=== PATIENT | female | born 1985 | race Caucasian/White ===

== ENCOUNTER 2017-02-13 18:51 | Outpatient (CLI) | payer BC ==
[~2017-02-13] VITALS: Ht 165.1 cm; Wt 67.6 kg
[2017-02-13] MEDS ORDERED: PRENAT PO (19:39)
[2017-02-13 19:41] VITALS: Ht 165.1 cm; Wt 67.6 kg
[2017-02-13] MEDS ORDERED: URSO300C3 PO (19:41)
[2017-02-13 19:42] VITALS: BP 119/73; PULSE 66; RESP 18
--- NOTE | 2017-02-13 20:35 | RADRPT ---
PROCEDURE: US OB. CLINICAL INDICATION: labor. Bleeding TECHNIQUE: Pelvic ultrasound performed for biophysical profile. COMPARISON: None FINDINGS: Single intrauterine gestation present with heart rate at 146 beats per minute. Presentation is ceph alic. Placenta is posterior, grade II. No evidence of placenta previa or abruption. Biophysical pro file score is 8/8 (breathing=2, movement=2, tone =2, fluid volume=2). Amniotic fluid volume is withi n normal limits, with FLORESITA = 14.2 cm. RPTAT:HJJR IMPRESSION: 1. Biophysical profile score 8/8. 2. Posterior grade 2 placenta without placenta previa or abruption. Physician Ishmael Date Time Electronically viewed and signed by Physician Ishmael on 02/13/2017 20:35 /
--- NOTE | 2017-02-13 22:04 | PN ---
Triage Information Date/Time 02/13/17 10pm Weeks of Gestation 31 yo P0 @ 35wks, 3 days, presents with vaginal spotting and abdominal cramps. She is on Ursinodol for persistent itching and bile acids drawn in clinic are pending. Patient feels baby moving actively. : 1 Para: 0 Diabetes: none Objective Vital Signs Date Time Temp Pulse Resp B/P Pulse Ox O2 Delivery O2 Flow Rate FiO2 02/13/17 19:42 97.9 66 18 119/73 Exam SVE: /-3 FHT: basline 140's; Cat I, patient has been monitored for 3 hrs, w 2 possible late decels noted during that time; otherwise no decelerations and accelerations present. 2nd late decel was 1 hour ago. Vowinckel- irreg ctx BPP 8/8, vtx, nml FLORESITA Results/Medications Imaging Results BPP 8/8, post placenta Assessment/Plan 31 yo P0 @ [id number] w bleeding, likely secondary to contractions, r/o PTL, w possible cholestasis of - reassuring status, BPP 8/8 - not currently itching, ctx have subsided, not actively bleeding - not in PTL will d/c home in 1 hr if no further decels, on the condition that patient will return in the morning for repeat NST. Strict kick count precautions. HENRY FROST MD Feb 13, 2017 22:04
--- NOTE | 2017-02-13 23:28 | TRIAGE ---
OB Triage Datetime Report Generated by CPN: 02/13/2017 23:28 Datetime: 02/13/2017 22:59 Labor Evaluation Frequency: 1.5-7 Monitor Mode: External Duration (sec)2399: 50-180 Quality: Mild Resting Tone Norborne: Relaxed Heart Rate FHR Baseline Rate: 135 Monitor Mode: External US FHR Baseline Changes: No Baseline Change Variability: Moderate 6-25 bpm Accelerations: 15X15 Decelerations: None Category: Category I Datetime: 02/13/2017 22:00 Labor Evaluation Frequency: 2-7 Monitor Mode: External Duration (sec)2399: 60-180 Quality: Mild Resting Tone [place]borne: Relaxed Heart Rate FHR Baseline Rate: 135 Monitor Mode: External US FHR Baseline Changes: No Baseline Change Variability: Moderate 6-25 bpm Accelerations: 15X15 Decelerations: None Category: Category I Datetime: 02/13/2017 21:52 Stage of : OB Triage Datetime: 02/13/2017 21:00 Labor Evaluation Frequency: 2-8 Monitor Mode: External Duration (sec)2399: 60-180 Quality: Mild Resting Tone Norborne: Relaxed Heart Rate FHR Baseline Rate: 140 Monitor Mode: External US FHR Baseline Changes: No Baseline Change Variability: Moderate 6-25 bpm Accelerations: 15X15 Decelerations: Late Category: Category II Datetime: 02/13/2017 20:35 Vaginal Exam Dilatation (cms): 1.0 Effacement (%): 50 Station: -3 Exam By: [facility] Cervix, Position: Posterior Presentation 'A': Cephalic Datetime: 02/13/2017 20:00 Labor Evaluation Frequency: 1-8 Monitor Mode: External Duration (sec)2399: 50-180 Quality: Mild Resting Tone Norborne: Relaxed Heart Rate FHR Baseline Rate: 140 Monitor Mode: External US FHR Baseline Changes: No Baseline Change Variability: Moderate 6-25 bpm Accelerations: 15X15 Decelerations: Late Category: Category II Datetime: 02/13/2017 19:53 Stage of : OB Triage Datetime: 02/13/2017 19:35 Stage of : OB Triage Assessment Type: Triage Maternal Assessment Level of Consciousness: Fully Conscious DTR's/Clonus: DTRs 2+; No Clonus Headache: Denies Blurred Vision: No Respiratory Effort: Unlabored; Regular Rhythm; Equal Expansion Breath Sounds, Left: Clear and Equal Breath Sounds, Right: Clear and Equal Nausea/Vomiting: Denies RUQ Epigastric Pain: Denies Lower Extremities Edema: None Degree: None Upper Extremities Edema: None Degree: None Facial Edema: None Fall Risk Assessment History of Falling: (0) No Secondary Diagnosis: (0) No Ambulatory Aid: (0) Bedrest/Nurse Assist IV Therapy: (0) No Gait: (0) Normal/Bedrest/Immobile Mental Status: (0) Oriented to Own Ability Fall Score: 0 Fall Risk Score Definition: No Risk: No action required Datetime: 02/13/2017 19:16 EGA: 35.3 Datetime: 02/13/2017 19:02 Stage of : OB Triage Temperature Route: Oral Pain Assessment Pain Scale: 1 Pain Presence: Intermittent Pain Type: Cramping Pain Location: Abdomen Pain Relief Measures: Comfort Measures Datetime: 02/13/2017 19:01 Monitor Mode: External Contraction Comments: Norborne applied Heart Rate FHR Baseline Rate: 140 Monitor Mode: External US Comments: EFM applied Datetime: 02/13/2017 19:00 Time of Arrival: 02/13/2017 18:44 Arrived From: Home Chief Complaint: VAG SPOTTING, ABDOMINAL CRAMPING Movement: Present Contractions: Occasional Contractions: 5-8 Rupture of Membranes: Denies Vaginal Bleeding: Scant Vaginal Discharge: Denies Recent Sexual Intercouse: Denies Abdominal Trauma: Not Applicable Patient Complaints: Cramping Time Provider Notified: 02/13/2017 19:50 Provider Notified: FROST Initial Plan: VS, EFM, BPP WITH PLACENTA LOCATION, VE
== END 2017-02-13 23:08 | disposition home or self-care (01) ==
LOC: OBT 18:51 → L-D 18:52 → OBT 23:08
PROVIDERS: ATTEND Specialist
DX: O26.853 Spotting complicating pregnancy, third trimester (principal); O26.893 Other specified pregnancy related conditions, third trimester; R10.9 Unspecified abdominal pain; Z3A.30 30 weeks gestation of pregnancy
CPT/HCPCS: 76818; 86900; 86901; Z7500; G0463

== ENCOUNTER 2017-02-14 07:55 | Inpatient (IN) | payer BC ==
[~2017-02-14] VITALS: Ht 165.1 cm; Wt 67.6 kg
[~2017-02-14 07:55] MED LIST: PRENAT PO; URSO300C3 PO
[2017-02-14 08:08] VITALS: Ht 165.1 cm; Wt 67.6 kg
[2017-02-14 08:09] VITALS: BP 124/72; PULSE 56; RESP 18
--- NOTE | 2017-02-14 09:17 | RADRPT ---
PROCEDURE: US OB biophysical profile. CLINICAL INDICATION: Contractions TECHNIQUE: Multiple sonographic images of the pelvis were obtained. The images were reviewed on a PACS workstation. COMPARISON: Obstetrical ultrasound from 02/13/2017 FINDINGS: There is a single viable intrauterine gestation. Cardiac activity is present with 139 beats per min [place]. There is a vertex presentation. The placenta is posterior. There is no evidence of placental abruption. There is a normal amount of amniotic fluid with an FLORESITA = 9.9 cm. Biophysical profile: movement 2/2 tone 2/2. breathing 2/2 FLORESITA 2/2 Total 04/14 RPTAT: AA . IMPRESSION: Normal biophysical profile. Physician Danyelle Date Time Electronically viewed and signed by Physician Danyelle on 02/14/2017 09:16 /
[2017-02-14] MEDS ORDERED: LACTATED RINGER'S 500 ML IV* ONE (09:40)
[2017-02-14] MEDS ORDERED: LACTATED RINGER'S 1,000 ML IV* SCH (10:30)
[2017-02-14 10:42] LABS: ADD UMIC YES; URINE BILIRUBIN (Dip) NEGATIVE (NEGATIVE); URINE BLOOD (Dip) 2+ (NEGATIVE); URINE COLOR YELLOW (YELLOW); URINE GLUCOSE (Dip) NEGATIVE (NEGATIVE); URINE KETONES (Dip) NEGATIVE (NEGATIVE); URINE LEUKOCYTE ESTERASE (Dip) NEGATIVE (NEGATIVE); URINE NITRITE (Dip) NEGATIVE (NEGATIVE); URINE TOTAL PROTEIN (Dip) TRACE (NEGATIVE); URINE UROBILINOGEN (Dip) 1.0 E.U./dL (0.1-1.0)
[2017-02-14 11:21] LABS: SQUAMOUS EPITHELIAL CELL,UR FEW; URINE RBCS 0-2 /HPF (0)
[2017-02-14 11:22] LABS: BACTERIA,URINE OCCASIONAL
[2017-02-14] MEDS ORDERED: TERBUTALINE 1 MG/ML INJ SC PRN (14:00)
[2017-02-14] MEDS ORDERED: BETAMET NA PHOS/AC(6 MG/ML) 5ML INJ IM SCH (14:00)
--- NOTE | 2017-02-14 14:36 | HP ---
Date/Time of Note Date/Time of Note DATE: 02/14/17 TIME: 14:27 OB - History Hx of Present Free Text/Dictation Patient is 1 para 0 at 35+4 weeks of gestation who presents with vaginal bleeding and contractions every 6-8 minutes Patient reports positive movement, no leaking fluid : 1 Para: 0 Care: Good Care Obstetrical Complications: None Medical Complications: None Past Family/Social History * Past Medical, Surgical, Family and Obstetric Histories reviewed from chart. OB Admission Exam Vital Signs Vital Signs Vital Signs Date Time Temp Pulse Resp B/P Pulse Ox O2 Delivery O2 Flow Rate FiO2 02/14/17 08:09 98.3 56 18 124/72 96 Room Air Physical Exam HEENT: WNL Heart: Rhythm Normal Lungs: Clear, Equal Abdomen: WNL Extremities: Normal Reflexes: Normal Cervical Dilatation: 1cm Effacement: 50% Station: -2 Membranes: Intact Heart Rate: 140's Accelerations: Accelerations Present Decelerations: No Decelerations Varibility: Moderate Contractions on Admission: 6-10 Minutes Apart OB Assessment/Plan Reason for admission: labor Other Assessment: 35+4 weeks of gestation with contractions and vaginal bleeding Other plan: Admit to antepartum IV fluids Labs Terbutaline as needed Betamethasone for lung maturity Continue with Actigall-bile acid results are pending We will obtain perinatology consult IRVIN CIFUENTES MD Feb 14, 2017 14:36
[2017-02-14] MEDS ORDERED: LACTATED RINGER'S 1,000 ML IV SCH (14:45)
[2017-02-14 14:50] LABS: ADD SCAN DIFF NO
[2017-02-14 14:52] LABS: ABNORMAL IP MESSAGE 1; BASOPHILS % 0.1 % (0.0-2.0); EOSINOPHILS % 0.2 % (0.0-7.0); HEMOGLOBIN 11.5 g/dl (12.0-16.0); LYMPHOCYTES % 9.1 % (15.0-51.0); MEAN CORPUSCULAR HGB CONC 35.9 g/dl (32.0-37.0); MEAN PLATELET VOLUME 13.8 fl (7.4-10.4); MONOCYTE # 0.4 10^3/ul (0.3-0.9); NEUTROPHILS % 85.9 % (39.0-77.0); PLATELET COUNT 59 10^3/UL (140-415); RED BLOOD COUNT 3.48 10^6/ul (4.20-5.40); RED CELL DISTRIBUTION WIDTH 12.7 % (11.5-14.5); WHITE BLOOD COUNT 10.5 10^3/ul (4.8-10.8)
[2017-02-14] MEDS ORDERED: DIPHENHYDRAMINE 25 MG CAP PO PRN (15:00)
[2017-02-14] MEDS ORDERED: AL HYDROX/MG HYDROX/SIMETH 30 ML CUP PO PRN (15:00)
[2017-02-14] MEDS ORDERED: ONDANSETRON 4 MG INJ IV PRN (15:00)
[2017-02-14] MEDS ORDERED: ACETAMINOPHEN 325 MG TAB PO PRN (15:00)
[2017-02-14] MEDS ORDERED: MAGNESIUM SULFATE 4 GM/100 ML 100 ML IV ONE (15:00)
[2017-02-14] MEDS ORDERED: AMPICILLIN 2 GM/NS (PMX) 100 ML IV ONE (15:00)
[2017-02-14 15:11] LABS: INR 0.81; PROTIME 11.2 Sec (12.2-14.2); PT RATIO 0.9
[2017-02-14 15:12] LABS: PARTIAL THROMBOPLASTIN TIME 44.5 Sec (25.0-35.0)
[2017-02-14 15:14] LABS: ALBUMIN 3.8 g/dl (3.3-4.9); ALBUMIN/GLOBULIN RATIO 1.22; BILIRUBIN,INDIRECT 0.4 mg/dl (0-1.1); BILIRUBIN,TOTAL 0.4 mg/dl (0.2-1.3); CALCIUM 8.8 mg/dl (8.4-10.2); CREATININE 0.77 mg/dl (0.44-1.00); POTASSIUM 3.8 mmol/L (3.5-5.1); TOTAL PROTEIN 6.9 g/dl (6.1-8.1)
[2017-02-14] MEDS ORDERED: MAGNESIUM SULFATE 20 GM/500 ML 500 ML IV SCH (15:30)
[2017-02-14] MEDS ORDERED: OXYTOCIN 30 UNITS/LR 500 ML IV PRN (18:30)
[2017-02-14] MEDS ORDERED: CARBOPROST 250 MCG INJ IM PRN (18:30)
[2017-02-14] MEDS ORDERED: MISOPROSTOL 200 MCG TAB PR PRN (18:30)
[2017-02-14] MEDS ORDERED: LACTATED RINGER'S 1,000 ML IV PRN (18:30)
[2017-02-14] MEDS ORDERED: LIDOCAINE 1% (MPF) 30 ML INJ INJ PRN (18:30)
[2017-02-14] MEDS ORDERED: OXYTOCIN 30 UNITS/LR 500 ML IV SCH ×3 (18:30→20:30)
[2017-02-14] MEDS ORDERED: IBUPROFEN 600 MG TAB PO PRN (18:30)
[2017-02-14] MEDS ORDERED: METHYLERGONOVINE 0.2 MG INJ IM PRN (18:30)
[2017-02-14] MEDS: LACTATED RINGER'S 1,000 ML IV SCH ×2 (18:41→21:07)
[2017-02-14] MEDS ORDERED: AMPICILLIN 1 GM/NS (PMX) 50 ML IV SCH (19:00)
[2017-02-14] MEDS ORDERED: AMPICILLIN 1 GM/NS (PMX) 50 ML IVPB SCH ×2 (19:00→21:00)
[2017-02-14 19:34] LABS: ADD SCAN DIFF NO
[2017-02-14 19:48] LABS: ABNORMAL IP MESSAGE 1; HEMATOCRIT 33.7 % (37.0-47.0); MEAN CORPUSCULAR HEMOGLOBIN 32.2 pg (29.0-33.0); MEAN CORPUSCULAR HGB CONC 35.6 g/dl (32.0-37.0); MEAN CORPUSCULAR VOLUME 90.3 fl (82.0-101.0); MEAN PLATELET VOLUME 13.5 fl (7.4-10.4); PLATELET COUNT 66 10^3/UL (140-415); RED BLOOD COUNT 3.73 10^6/ul (4.20-5.40); RED CELL DISTRIBUTION WIDTH 12.5 % (11.5-14.5); WHITE BLOOD COUNT 15.5 10^3/ul (4.8-10.8)
[2017-02-14 19:52] LABS: ALBUMIN/GLOBULIN RATIO 1.21; BILIRUBIN,INDIRECT 0.4 mg/dl (0-1.1); BILIRUBIN,TOTAL 0.4 mg/dl (0.2-1.3); CALCIUM 8.4 mg/dl (8.4-10.2); CREATININE 0.7 mg/dl (0.44-1.00); POTASSIUM 3.9 mmol/L (3.5-5.1); TOTAL PROTEIN 7.3 g/dl (6.1-8.1)
--- NOTE | 2017-02-14 20:25 | PN ---
Date/Time of Note Date/Time of Note DATE: 02/14/17 TIME: 20:20 OB Subjective Subjective Subjective Patient is 1 para 0 at 35+4 weeks of gestation who presents with vaginal bleeding and contractions every 6-8 minutes Patient reports positive movement, no leaking fluid OB Objective Objective Objective Patient status post magnesium sulfate Status post 1 dose of betamethasone for lung maturity Patient still complaining of vaginal bleeding and contractions are every 5 minutes Labs indicating with decreased platelets of 50s-60s and elevated liver function tests Patient has been diagnosed with cholestasis of and currently on Actigall HEENT: WNL Heart: Rhythm Normal Lungs: Clear, Equal Abdomen: WNL Extremities: Normal Reflexes: Normal Cervical Dilatation: 2cm Effacement: 50% Station: -2 Membranes: Intact Heart Rate: 140's Accelerations: Accelerations Present Decelerations: No Decelerations Varibility: Moderate Contractions on Admission: 6-10 Minutes Apart Intensity: Mild OB Assessment/Plan Other Assessment: Patient is 1 para 0 at 35+4 weeks of gestation who presents with vaginal bleeding and contractions Patient with suspected cholestasis of and now developing HELLP syndrome Other plan: Patient was transferred to labor and delivery Magnesium sulfate was stopped Repeat labs indicating worsening of liver function tests and low platelets Perinatologist Dr. Pickett was consulted regarding this patient and she agrees to allow the patient to proceed with labor Patient was counseled that despite her status in the setting of cholestasis of and HELLP syndrome delivery is recommended Patient's questions were answered and she understands her plan of care and agrees to proceed IRVIN CIFUENTES MD Feb 14, 2017 20:25
[2017-02-14 20:34] LABS: BASOPHIL # 0.2 10^3/ul (0.0-0.1); LYMPHOCYTES # 0.8 10^3/ul (0.8-2.9); MONOCYTE # 0.2 10^3/ul (0.3-0.9); MYELOCYTES # 0.2; NEUTROPHIL # 13.5 10^3/ul (1.6-7.5); PLATELET ESTIMATE PLT APPEAR DECREASED
[2017-02-14] MEDS ORDERED: URSODIOL 300 MG CAP PO SCH (21:00)
[2017-02-14] MEDS: AMPICILLIN 1 GM/NS (PMX) 50 ML IV SCH (21:07)
--- NOTE | 2017-02-14 22:45 | RADRPT ---
PROCEDURE: ULTRASOUND OBSTETRICAL CLINICAL INDICATION: 31-year-old female in labor for size and date determination. TECHNIQUE: Multiple sonographic images of the pelvis were obtained. The images were reviewed on a PACS workstation. COMPARISON: Ultrasound biophysical profile obtained concurrently. FINDINGS: The cervix is not well visualized. There is a single viable intrauterine gestation. Cardiac activit y is present with 146 beats per minute. There is a low vertex presentation. Measurements were made i n order to determine age. The results are as follows: BPD = 8.26 cm, HC = 30.03 cm, AC = 31.16 cm, FL = 6.72 cm. This yields and estimated gestational ag e of approximately 34 weeks 1 day. The estimated date of delivery is March 27, 2017. The EFW = 2461 +/- 369 g (5 lb 7 oz). The GP is 23%. The placenta is fundal and left lateral. There is no evidence for an abruption or placenta previa. IMPRESSION: 1. Single viable intrauterine gestation of approximately 34 weeks 1 day with low vertex presentatio n. The estimated date of delivery is March 27, 2017. 2. The estimated weight is 2461 +/- 369 g (5 lb 7 oz). The GP is 23%. 3. The cervical length was not well visualized. .Christopher Chaudhry MD, Date Time Electronically viewed and signed by .Christopher Chaudhry MD, on 02/14/2017 22:45 .M/
[2017-02-14 23:44] LABS: BARBITURATES NEGATIVE (NEGATIVE); BENZODIAZEPINES NEGATIVE (NEGATIVE); CANNABINOIDS NEGATIVE (NEGATIVE); COCAINE NEGATIVE (NEGATIVE); OPIATES NEGATIVE (NEGATIVE)
[2017-02-15] MEDS ORDERED: BUTORPHANOL 2 MG INJ IV PRN ×2
[2017-02-15] MEDS: AMPICILLIN 1 GM/NS (PMX) 50 ML IV SCH (01:27)
--- NOTE | 2017-02-15 01:29 | LDN ---
Date/Time of Note Date/Time of Note DATE: 02/15/17 TIME: 01:26 Delivery Summary 35+ weeks of gestation with cholestasis of and HELLP syndrome Weeks of Gestation Baby's weight 2230 g/4 lbs. 15 oz. Placenta Delivered: Spontaneously Meconium: none Episiotomy: No Laceration repair: First-degree laceration repaired with 2-0 chromic Anesthesia type: Local Estimated blood loss: 200 Sponge & Needle done & correct: Yes All needle counts correct: Yes Any foreign bodies felt in the: No Problems: Infant Delivery Information Sex Infant Sex: female Apgars 1 Minute: 8 5 Minute: 9 Suctioning Nose & mouth suctioned at jade: Yes Umbilical Cord Umbilical cord with: 3 Vessels Cord presentations: no nuchal cord Cord Blood was obtained: Yes Copies To: CC: ALTA ROSALES MD, BAHAREH MD Feb 15, 2017 01:29
[2017-02-15] MEDS: LACTATED RINGER'S 1,000 ML IV* SCH ×3 (01:30→17:30)
[2017-02-15] MEDS ORDERED: SENNA/DOCUSATE NA (8.6MG/50MG) TAB PO PRN (01:30)
[2017-02-15] MEDS ORDERED: MAGNESIUM HYDROXIDE 30ML CUP PO PRN (01:30)
[2017-02-15] MEDS ORDERED: OXYTOCIN 30 UNITS/LR 500 ML IV PRN (01:30)
[2017-02-15] MEDS ORDERED: MISOPROSTOL 200 MCG TAB PR PRN (01:30)
[2017-02-15] MEDS: OXYTOCIN 30 UNITS/LR 500 ML IV SCH ×2 (01:30→05:30)
[2017-02-15] MEDS ORDERED: METHYLERGONOVINE 0.2 MG INJ IM PRN (01:30)
[2017-02-15] MEDS ORDERED: ACETAMINOPHEN 325 MG TAB PO PRN ×2 (01:30)
[2017-02-15] MEDS ORDERED: CARBOPROST 250 MCG INJ IM PRN (01:30)
[2017-02-15] MEDS ORDERED: DIBUCAINE 1% 30 GM OINT PR PRN (01:30)
[2017-02-15] MEDS ORDERED: BENZOCAINE 20% 56 ML SPRAY TOP PRN (01:30)
[2017-02-15] MEDS ORDERED: LANOLIN 7 GM TUBE TOP PRN (01:30)
[2017-02-15] MEDS ORDERED: ONDANSETRON 4 MG INJ IV PRN (01:30)
[2017-02-15] MEDS ORDERED: WITCH HAZEL/GLYCERIN PAD PR PRN (01:30)
[2017-02-15 03:17] VITALS: BP 127/76; PULSE 67; RESP 17
[2017-02-15 04:50] VITALS: BP 120/76; PULSE 67; RESP 20
[2017-02-15 07:30] VITALS: BP 126/75; PULSE 75; RESP 19
[2017-02-15] MEDS: MULTIVIT/MIN/FOLATE/IRON/PREN TAB PO SCH (10:01)
[2017-02-15 15:50] LABS: RAPID PLASMA REAGIN REACTIVE (NR)
[2017-02-15 16:00] VITALS: BP 126/72; PULSE 72; RESP 19
[2017-02-15] MEDS: IBUPROFEN 600 MG TAB PO PRN (17:53)
[2017-02-15 19:35] VITALS: BP 121/66; PULSE 76; RESP 18
[2017-02-16] MEDS: LACTATED RINGER'S 1,000 ML IV* SCH (01:30)
[2017-02-16 03:30] VITALS: BP 121/79; PULSE 74; RESP 20
[2017-02-16 06:38] LABS: ADD SCAN DIFF NO
[2017-02-16 06:54] LABS: ABNORMAL IP MESSAGE 1; BASOPHILS % 0.2 % (0.0-2.0); EOSINOPHILS # 0.1 10^3/ul (0.0-0.5); EOSINOPHILS % 0.5 % (0.0-7.0); HEMATOCRIT 29.4 % (37.0-47.0); HEMOGLOBIN 9.8 g/dl (12.0-16.0); LYMPHOCYTES # 1.4 10^3/ul (0.8-2.9); LYMPHOCYTES % 11.1 % (15.0-51.0); MEAN CORPUSCULAR HEMOGLOBIN 31.7 pg (29.0-33.0); MEAN CORPUSCULAR HGB CONC 33.3 g/dl (32.0-37.0); MEAN CORPUSCULAR VOLUME 95.1 fl (82.0-101.0); MEAN PLATELET VOLUME 12.9 fl (7.4-10.4); MONOCYTE # 0.7 10^3/ul (0.3-0.9); MONOCYTES % 5.6 % (0.0-11.0); NEUTROPHIL # 10.6 10^3/ul (1.6-7.5); NEUTROPHILS % 81.7 % (39.0-77.0); RED BLOOD COUNT 3.09 10^6/ul (4.20-5.40); RED CELL DISTRIBUTION WIDTH 13.2 % (11.5-14.5); WHITE BLOOD COUNT 12.9 10^3/ul (4.8-10.8)
[2017-02-16 06:58] LABS: PLATELET COUNT 51 10^3/UL (140-415)
[2017-02-16 07:08] LABS: ALBUMIN 3.3 g/dl (3.3-4.9); ALBUMIN/GLOBULIN RATIO 1.1; BILIRUBIN,INDIRECT 0.1 mg/dl (0-1.1); BILIRUBIN,TOTAL 0.1 mg/dl (0.2-1.3); CREATININE 0.65 mg/dl (0.44-1.00); POTASSIUM 3.8 mmol/L (3.5-5.1); TOTAL PROTEIN 6.3 g/dl (6.1-8.1)
--- NOTE | 2017-02-16 07:54 | PN ---
Date/Time of Note Date/Time of Note DATE: 02/16/17 TIME: 07:53 OB Subjective Subjective Subjective Doing well,nursing without problems. OB Objective Objective Objective BPs are normal,platelets still low Lochia normal. HEENT: WNL Heart: Rhythm Normal Lungs: Clear Abdomen: WNL Extremities: Normal ALTA ROSALES MD Feb 16, 2017 07:54
[2017-02-16 08:10] VITALS: BP 119/75; PULSE 74; RESP 18
[2017-02-16] MEDS: MULTIVIT/MIN/FOLATE/IRON/PREN TAB PO SCH (09:10)
[2017-02-16] MEDS: IBUPROFEN 600 MG TAB PO PRN ×2 (12:07→18:17)
[2017-02-16 16:04] VITALS: BP 123/58; PULSE 68; RESP 14
[2017-02-16 19:20] VITALS: BP 130/80; PULSE 74; RESP 19
[2017-02-17 04:00] VITALS: BP 112/72; PULSE 74; RESP 19
[2017-02-17 07:45] LABS: ADD SCAN DIFF NO
[2017-02-17 08:00] VITALS: BP 120/66; PULSE 82; RESP 18
[2017-02-17 08:01] LABS: ABNORMAL IP MESSAGE 1; BASOPHILS % 0.3 % (0.0-2.0); EOSINOPHILS # 0.3 10^3/ul (0.0-0.5); EOSINOPHILS % 1.9 % (0.0-7.0); HEMATOCRIT 29.5 % (37.0-47.0); HEMOGLOBIN 10.1 g/dl (12.0-16.0); LYMPHOCYTES # 1.2 10^3/ul (0.8-2.9); MEAN CORPUSCULAR HEMOGLOBIN 32.1 pg (29.0-33.0); MEAN CORPUSCULAR HGB CONC 34.2 g/dl (32.0-37.0); MEAN CORPUSCULAR VOLUME 93.7 fl (82.0-101.0); MEAN PLATELET VOLUME 12.2 fl (7.4-10.4); MONOCYTE # 0.6 10^3/ul (0.3-0.9); MONOCYTES % 4.5 % (0.0-11.0); NEUTROPHIL # 10.9 10^3/ul (1.6-7.5); NEUTROPHILS % 83.4 % (39.0-77.0); RED BLOOD COUNT 3.15 10^6/ul (4.20-5.40); RED CELL DISTRIBUTION WIDTH 13.1 % (11.5-14.5); WHITE BLOOD COUNT 13.1 10^3/ul (4.8-10.8)
[2017-02-17 08:09] LABS: PLATELET COUNT 73 10^3/UL (140-415)
[2017-02-17 08:20] LABS: ALBUMIN 3.6 g/dl (3.3-4.9); ALBUMIN/GLOBULIN RATIO 1.16; BILIRUBIN,INDIRECT 0.3 mg/dl (0-1.1); BILIRUBIN,TOTAL 0.3 mg/dl (0.2-1.3); CREATININE 0.68 mg/dl (0.44-1.00); POTASSIUM 3.5 mmol/L (3.5-5.1); TOTAL PROTEIN 6.7 g/dl (6.1-8.1)
[2017-02-17] MEDS: MULTIVIT/MIN/FOLATE/IRON/PREN TAB PO SCH (09:36)
[2017-02-17] MEDS: IBUPROFEN 600 MG TAB PO PRN (09:36)
--- NOTE | 2017-02-17 14:19 | PD.PPDC ---
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
--- NOTE | 2017-02-17 14:24 | DS ---
Date/Time of Note Date/Time of Note DATE: 02/17/17 TIME: 14:20 Obstetrical Discharge Record Final Diagnosis Final Diagnosis: delivered Other Final Diagnosis cholestsis thrombocytopenia Vaginal Delivery Obstetrical Delivery: Spontaneous, Laceration, Repaired Complications Augmentation: No Induction: No Tocolytics: Terbutaline Rupture of Membranes: Yes Condition on Discharge Physical Assessment Last Vitals: vss afebrile Voiding: Yes Bowel Movement: Yes Breast: Soft, non-tender Fundus: Firm Calf Tenderness: No Patient Condition: Stable MANISHA JARA MD Feb 17, 2017 14:24
[2017-02-17] MEDS ORDERED: MEASLES,MUMPS,RUBELLA VACCINE INJ SC* ONE (14:30)
== END 2017-02-17 16:57 | disposition home or self-care (01) | DRG 775 ==
LOC: OBT 07:55 → L-D 07:55 → OBT 13:40 → OBG 13:48 → L-D 18:20 → PP1 02-15 03:07
PROVIDERS: ADMIT Specialist; ATTEND Specialist
PROC: 10E0XZZ Delivery of Products of Conception, External Approach (ICD-10-PCS; principal; 2017-02-15)
PROC: 0HQ9XZZ Repair Perineum Skin, External Approach (ICD-10-PCS; 2017-02-15)
PROC: 3E0234Z Introduction of Serum, Toxoid and Vaccine into Muscle, Percutaneous Approach (ICD-10-PCS; 2017-02-17)
DX: O60.14X0 Preterm labor third trimester with preterm delivery third trimester, not applicable or unspecified (principal); D69.6 Thrombocytopenia, unspecified; K83.1 Obstruction of bile duct; O26.62 Liver and biliary tract disorders in childbirth; O14.24 HELLP syndrome, complicating childbirth; O99.12 Other diseases of the blood and blood-forming organs and certain disorders involving the immune mechanism complicating childbirth; O70.0 First degree perineal laceration during delivery; Z23 Encounter for immunization; Z3A.35 35 weeks gestation of pregnancy; Z37.0 Single live birth
CPT/HCPCS: 36415; 76815; 76818; 80053; 80307; 81001; 85025; 85610; 85730; 86592; 86850; 86900; 86901; 87086; 87340; 88305; 96360; 96361; 99464; G0463; J0290; J0595; J0702; J2590; J3475; J7120